=== PATIENT | male | born 1940 | race Caucasian/White ===

== ENCOUNTER 2019-09-17 13:11 | Emergency (ER) | payer MEDICARE, BC ==
[~2019-09-17] VITALS: Ht 170.2 cm; Wt 65.0 kg
[2019-09-17 13:35] LABS: BASOPHILS # (AUTO) 0.1 X10'3 (0-0.2); BASOPHILS % (AUTO) 0.6 % (0-1); EOSINOPHILS # (AUTO) 0.3 X10'3 (0-0.9); EOSINOPHILS % (AUTO) 1.5 % (0-6); HEMATOCRIT 42.6 % (42.0-52.0); HEMOGLOBIN 14.4 g/dl (14.0-17.9); LYMPHOCYTES # (AUTO) 1.5 X10'3 (1.1-4.8); LYMPHOCYTES % (AUTO) 9.2 % (21-51); MEAN CORPUSCULAR HEMOGLOBIN 30.1 PG (27.0-31.0); MEAN CORPUSCULAR HGB CONC 33.8 g/dL (33.0-36.5); MEAN CORPUSCULAR VOLUME 88.9 FL (78-98); MEAN PLATELET VOLUME 7.3 FL (7.4-10.4); MONOCYTES # (AUTO) 0.9 X10'3 (0-0.9); MONOCYTES % (AUTO) 5.4 % (2-12); NEUTROPHILS % (AUTO) 83.3 % (42-75); PLATELET COUNT 437 X10'3 (140-440); RED BLOOD COUNT 4.79 X10'6 (4.70-6.10); RED CELL DISTRIBUTION WIDTH 12.9 % (11.5-14.5); WHITE BLOOD COUNT 16.7 X10'3 (4.5-11.0)
[2019-09-17 13:50] LABS: ALANINE AMINOTRANSFERASE 21 U/L (12-78); ALBUMIN 3.9 G/DL (3.4-5.0); ALBUMIN/GLOBULIN RATIO 1.1 (1.1-1.5); ALKALINE PHOSPHATASE 140 IU/L (46-116); AMYLASE 48 U/L (25-115); ANION GAP 8 (8-16); ASPARTATE AMINO TRANSFERASE 11 U/L (10-37); BILIRUBIN,TOTAL 0.7 MG/DL (0.1-1.0); BLOOD UREA NITROGEN 18 MG/DL (7-18); CALCIUM 9.3 MG/DL (8.5-10.1); CHLORIDE 104 MMOL/L (99-107); GLUCOSE 175 MG/DL (70-104); LIPASE 144 U/L (73-393); POTASSIUM 4.1 MMOL/L (3.5-5.1); SODIUM 139 MMOL/L (135-145); TOTAL PROTEIN 7.5 G/DL (6.4-8.2); eGFR 72 ML/MIN
--- NOTE | 2019-09-17 14:14 | NUR ---
PT ABLE TO VOID ROUGHLY 40ML OF URINE. BLADDER SCAN >472ML. PT REQUESTING TO CATH HIMSELF HE DOES THIS APPROX 2-3 TIMES DAILY AT HOME. PT USES 14 FR COUDE CATH AT HOME. WILL SUPPLY PT WITH CATH.
[2019-09-17 14:21] LABS: CLARITY,URINE TURBID (Clear); COLOR,URINE STRAW (Yellow); GLUCOSE, URINE 250 mg/dl (Neg); KETONES,URINE NEGATIVE (Neg); LEUKOCYTE ESTERASE ,URINE MODERATE (Neg); NITRITES, URINE NEGATIVE (Neg); OCCULT BLOOD,URINE LARGE (Neg); PH,URINE 5.5 (4.8-8.0); PROTEIN,URINE 100 mg/dl (Neg); UA COLLECTION TYPE CLN CATCH MIDSTREAM; UROBILINOGEN,URINE 0.2 E.U/dL (0.2-1.0)
[2019-09-17 14:24] LABS: BACTERIA,URINE 4+ /HPF (Neg); MUCUS STRANDS NONE SEEN /LPF (Neg); SQUAMOUS EPITHELIAL CELL,UR NONE SEEN /LPF (FEW); TRANSITIONAL EPI CELLS,URINE FEW /HPF; WBC,URINE TNTC /HPF (0-4)
[2019-09-17 14:25] LABS: WBC CLUMPS,URINE FEW /HPF (NEGATIVE)
--- NOTE | 2019-09-17 14:32 | NUR ---
Pt unsuccessful with self cathing using our catheter. RN to strait cath pt.
[2019-09-17] MEDS ORDERED: ketorolac tromethamine 15mg/ml inj. IV ONE (15:10)
[2019-09-17] MEDS ORDERED: iohexol 350MG/ML 100ml bottle IV ONE (15:23)
[2019-09-17] MEDS ORDERED: iohexol 300mg/ml 100ml inj. ONE (15:30)
--- NOTE | 2019-09-17 15:35 | NUR ---
Pt out to CT
[2019-09-17] MEDS ORDERED: MESSAGE TO NURSING PO NR (15:45)
[2019-09-17 15:56] VITALS: BP 140/76
[2019-09-17] MEDS ORDERED: CEPH-572 PO (16:25)
[2019-09-17] MEDS ORDERED: LIDOcaine 2% 10ml TOPICAL JELLY (Urojet) MM ONE (16:35)
== END 2019-09-17 18:11 | disposition home or self-care (01) ==
LOC: ER 13:12
DX: N40.0 Benign prostatic hyperplasia without lower urinary tract symptoms (principal); N13.9 Obstructive and reflux uropathy, unspecified; N39.0 Urinary tract infection, site not specified; Z79.2 Long term (current) use of antibiotics
CPT/HCPCS: 36415; 51700; 74178; 80053; 81001; 82150; 83690; 85025; 87077; 87088; 87186; 96374; 99284; J1885; Q9967